=== PATIENT | male | born 1955 | race Caucasian/White ===

== ENCOUNTER 2017-05-23 20:55 | Emergency (ER) | payer BC ==
[~2017-05-23] VITALS: Ht 177.8 cm; Wt 94.9 kg
[2017-05-23] MEDS ORDERED: SODIUM CHLORIDE 0.9% 1,000ML IVBOLUS ONE (21:30)
[2017-05-23] MEDS ORDERED: ONDANSETRON 2MG/ML, 2ML IVPush ONE (21:30)
[2017-05-23 21:44] LABS: HEMATOCRIT 44.2 % (39.2-51.8); WHITE BLOOD COUNT 6.5 x10^3/uL (3.4-10)
[2017-05-23] MEDS ORDERED: ONDANSETRON 2MG/ML, 2ML ONE (21:50)
[2017-05-23 22:06] LABS: ASPARTATE AMINO TRANSFERASE 28 U/L (15-37); BLOOD UREA NITROGEN 17 mg/dL (7-18)
[2017-05-23] MEDS ORDERED: LISI5TAB7 PO (22:29)
[2017-05-23] MEDS ORDERED: APIX5TAB PO (22:29)
[2017-05-23] MEDS ORDERED: METO25TA2 PO (22:29)
[2017-05-23 22:40] VITALS: BP 134/75
== END 2017-05-23 23:10 | disposition home or self-care (01) ==
LOC: ED 22:29
DX: F10.120 Alcohol abuse with intoxication, uncomplicated (principal); I10 Essential (primary) hypertension
CPT/HCPCS: 36415; 80053; 80307; 83690; 85025; 96361; 96374; 99284; J2405; J7030

== ENCOUNTER 2017-05-28 13:26 | Emergency (ER) | payer BC ==
[~2017-05-28] VITALS: Ht 180.3 cm; Wt 220.0 kg
[~2017-05-28 13:26] MED LIST: APIX5TAB PO; LISI5TAB7 PO; METO25TA2 PO
[2017-05-28] MEDS ORDERED: SODIUM CHLORIDE 0.9% 1,000 ML IV ONE (13:43)
[2017-05-28] MEDS ORDERED: SODIUM CHLORIDE FLUSH 10ML SYR IVF ONE (14:00)
[2017-05-28] MEDS ORDERED: LORazepam 2 MG/ML, 1ML IVPush ONE (14:00)
[2017-05-28] MEDS ORDERED: LORazepam 2 MG/ML, 1ML ONE (14:12)
[2017-05-28 14:16] LABS: HEMATOCRIT 44.3 % (39.2-51.8); WHITE BLOOD COUNT 5.2 x10^3/uL (3.4-10)
[2017-05-28 14:24] LABS: BLOOD UREA NITROGEN 22 mg/dL (7-18)
[2017-05-28 14:27] LABS: ASPARTATE AMINO TRANSFERASE 49 U/L (15-37)
[2017-05-28 15:37] VITALS: BP 105/48
== END 2017-05-28 16:12 | disposition home or self-care (01) ==
LOC: ED 15:36
DX: Z00.01 Encounter for general adult medical examination with abnormal findings (principal); F10.120 Alcohol abuse with intoxication, uncomplicated; I10 Essential (primary) hypertension; R09.02 Hypoxemia
CPT/HCPCS: 36415; 80053; 80307; 83690; 85025; 85610; 85730; 93005; 96361; 96374; 99285; J2060; J7030

== ENCOUNTER 2017-05-29 15:55 | Inpatient (IN) | payer BC ==
[~2017-05-29] VITALS: Ht 180.3 cm; Wt 99.1 kg
[2017-05-29] MEDS ORDERED: MORPHINE SULFATE 4 MG/ML, 1ML IVPush PRN (16:30)
[2017-05-29] MEDS ORDERED: ONDANSETRON 2MG/ML, 2ML IVPush ONE (16:30)
[2017-05-29] MEDS ORDERED: PLEASE ENTER HEIGHT AND WEIGHT MC SCH (16:30)
[2017-05-29] MEDS ORDERED: SODIUM CHLORIDE FLUSH 10ML SYR IVF ONE (16:30)
[2017-05-29] MEDS ORDERED: SODIUM CHLORIDE 0.9% 1,000ML IVBOLUS ONE (16:30)
[2017-05-29 16:51] LABS: ASPARTATE AMINO TRANSFERASE 61 U/L (15-37); BLOOD UREA NITROGEN 20 mg/dL (7-18)
[2017-05-29 16:52] LABS: HEMATOCRIT 40.4 % (39.2-51.8); HEMOGLOBIN 13.8 g/dL (13.7-18.0); WHITE BLOOD COUNT 5.6 x10^3/uL (3.4-10)
[2017-05-29] MEDS ORDERED: MORPHINE SULFATE 4 MG/ML, 1ML ONE ×2 (16:54→22:06)
[2017-05-29] MEDS ORDERED: ONDANSETRON 2MG/ML, 2ML ONE (16:54)
[2017-05-29] MEDS ORDERED: SODIUM CHLORIDE 0.9%, 500ML IVBOLUS ONE (18:00)
[2017-05-29] MEDS ORDERED: POTASSIUM CHLORIDE 20 MEQ in LACTATED RINGERS 1,000 ML IV SCH (18:25)
[2017-05-29] MEDS ORDERED: BISACODYL 10 MG SUPP PR PRN (18:30)
[2017-05-29 20:02] VITALS: BP 179/75
[2017-05-29] MEDS ORDERED: OMNIPAQUE 350 MG/ML, 100ML BOTTLE ONE (20:45)
[2017-05-29] MEDS: morphine SULFATE 10 MG/ML, 1ML IVPush PRN (22:09)
[2017-05-29 22:17] VITALS: BP 179/75
[2017-05-29] MEDS: ONDANSETRON 2MG/ML, 2ML IVPush PRN (22:53)
[2017-05-29] MEDS: POTASSIUM CHLORIDE 20 MEQ, MAGNESIUM SULFATE 2 GM, THIAMINE 100 MG, MVI ADULT 10 ML, FO... IV SCH (22:54)
[2017-05-30 01:38] VITALS: BP 157/71
[2017-05-30 05:17] LABS: HEMATOCRIT 40.1 % (39.2-51.8); HEMOGLOBIN 13.7 g/dL (13.7-18.0); WHITE BLOOD COUNT 4.5 x10^3/uL (3.4-10)
[2017-05-30 05:41] LABS: ASPARTATE AMINO TRANSFERASE 59 U/L (15-37); BLOOD UREA NITROGEN 12 mg/dL (7-18)
[2017-05-30] MEDS: ONDANSETRON 2MG/ML, 2ML IVPush PRN (05:50)
[2017-05-30] MEDS ORDERED: MORPHINE SULFATE 4 MG/ML, 1ML ONE ×2 (06:12→23:09)
[2017-05-30] MEDS: morphine SULFATE 10 MG/ML, 1ML IVPush PRN ×2 (06:15→23:12)
[2017-05-30] MEDS ORDERED: POTASSIUM PHOSPHATE 44 MEQ in SODIUM CHLORIDE 0.9% 500 ML IV ONE (07:30)
[2017-05-30] MEDS ORDERED: MAGNESIUM SULFATE PMX 2GM/50ML 50 ML IV ONE (07:30)
[2017-05-30 08:00] VITALS: BP 165/84
[2017-05-30] MEDS: LORazepam 2 MG/ML, 1ML IVPush PRN ×4 (08:36→19:57)
[2017-05-30] MEDS: BACLOFEN 10 MG TABLET PO SCH ×3 (10:43→22:49)
[2017-05-30 12:35] VITALS: BP 159/88
[2017-05-30] MEDS: POTASSIUM CHLORIDE 20 MEQ in LACTATED RINGERS 1,000 ML IV SCH (19:57)
[2017-05-30 20:19] VITALS: BP 142/67
[2017-05-30] MEDS: POTASSIUM CHLORIDE 20 MEQ, MAGNESIUM SULFATE 2 GM, THIAMINE 100 MG, MVI ADULT 10 ML, FO... IV SCH (23:25)
[2017-05-31] MEDS: POTASSIUM CHLORIDE 20 MEQ in LACTATED RINGERS 1,000 ML IV SCH ×2 (01:44→19:34)
[2017-05-31 02:58] VITALS: BP 177/101
[2017-05-31] MEDS: LORazepam 2 MG/ML, 1ML IVPush PRN ×5 (03:34→21:29)
[2017-05-31 06:03] LABS: HEMATOCRIT 40.5 % (39.2-51.8); HEMOGLOBIN 13.9 g/dL (13.7-18.0)
[2017-05-31 06:05] LABS: BLOOD UREA NITROGEN 5 mg/dL (7-18)
[2017-05-31 06:10] LABS: ASPARTATE AMINO TRANSFERASE 41 U/L (15-37)
[2017-05-31 07:16] VITALS: BP 161/81
[2017-05-31] MEDS: BACLOFEN 10 MG TABLET PO SCH ×3 (08:00→19:34)
[2017-05-31] MEDS: morphine SULFATE 10 MG/ML, 1ML IVPush PRN ×3 (10:14→23:22)
[2017-05-31 15:08] VITALS: BP 156/89
[2017-05-31 20:19] VITALS: BP 182/99
[2017-05-31] MEDS: LABETALOL 5MG/ML, 20ML IVPush PRN (20:31)
[2017-05-31 21:00] VITALS: BP 180/78
[2017-05-31 21:35] VITALS: BP 154/67
[2017-05-31] MEDS: POTASSIUM CHLORIDE 20 MEQ, MAGNESIUM SULFATE 2 GM, THIAMINE 100 MG, MVI ADULT 10 ML, FO... IV SCH (22:53)
[2017-06-01] MEDS: LORazepam 2 MG/ML, 1ML IVPush PRN (02:06)
[2017-06-01 03:00] VITALS: BP 175/93
[2017-06-01] MEDS: LABETALOL 5MG/ML, 20ML IVPush PRN (05:52)
[2017-06-01 06:32] VITALS: BP 159/81
[2017-06-01] MEDS: morphine SULFATE 10 MG/ML, 1ML IVPush PRN (08:43)
[2017-06-01] MEDS: BACLOFEN 10 MG TABLET PO SCH (08:43)
== END 2017-06-01 12:45 | disposition home or self-care (01) | DRG 439 ==
LOC: ED 16:07 → EDIP 18:25 → 4WST 19:39 → DCLOUNGE 06-01 12:19
PROVIDERS: ADMIT Internal Medicine; ATTEND Internal Medicine
DX: K85.20 Alcohol induced acute pancreatitis without necrosis or infection (principal); F10.231 Alcohol dependence with withdrawal delirium; F10.221 Alcohol dependence with intoxication delirium; E44.0 Moderate protein-calorie malnutrition; D68.69 Other thrombophilia; I11.9 Hypertensive heart disease without heart failure; E78.5 Hyperlipidemia, unspecified; I48.91 Unspecified atrial fibrillation; F17.210 Nicotine dependence, cigarettes, uncomplicated; Z91.81 History of falling; R73.9 Hyperglycemia, unspecified
CPT/HCPCS: 36415; 74022; 74177; 80053; 80061; 83605; 83690; 83735; 84100; 85025; 96361; 96374; 96375; J2405; J3411; J3475; J3480; J7042; Q9967; J2060; J2270; J7030; J7040; J7120

== ENCOUNTER → 2018-07-20 | Outpatient (CLI) | payer MEDICAID | END | disposition home or self-care (01) | LOC: RAD 10:50 | PROVIDERS: ATTEND Nurse Practitioner Family | DX: I25.10 Atherosclerotic heart disease of native coronary artery without angina pectoris (principal) | CPT/HCPCS: 71250 ==

== ENCOUNTER → 2020-02-26 | Outpatient (CLI) | payer MEDICARE, MEDICAID | END | disposition home or self-care (01) | LOC: CVU 08:21 | PROVIDERS: ATTEND Internal Medicine Cardiovascular Disease | DX: I08.1 Rheumatic disorders of both mitral and tricuspid valves (principal); E78.5 Hyperlipidemia, unspecified; I48.0 Paroxysmal atrial fibrillation; I10 Essential (primary) hypertension; F17.200 Nicotine dependence, unspecified, uncomplicated; Z79.01 Long term (current) use of anticoagulants | CPT/HCPCS: 93306 ==

== ENCOUNTER → 2021-04-28 | Outpatient (CLI) | payer MEDICARE, MEDICAID | END | disposition home or self-care (01) | LOC: CFH 08:28 | PROVIDERS: ATTEND Nurse Practitioner | DX: Z12.2 Encounter for screening for malignant neoplasm of respiratory organs (principal); F17.210 Nicotine dependence, cigarettes, uncomplicated | CPT/HCPCS: 71271 ==